=== PATIENT | female | born 1995 | race Caucasian/White ===

== ENCOUNTER → 2016-08-10 | Outpatient (CLI) | payer OTHER ==
[~2016-08-10] MED LIST: BCPILLS PO; CEPH500C PO; CETI10TA84 PO
== END | disposition home or self-care (01) ==
LOC: C.LABBC 14:05
PROVIDERS: ATTEND Family Medicine
DX: J02.9 Acute pharyngitis, unspecified (principal)

== ENCOUNTER 2016-09-04 21:22 | Emergency (ER) | payer OTHER ==
[~2016-09-04] VITALS: Ht 170.2 cm; Wt 65.2 kg
[2016-09-04 21:24] VITALS: TEMP 37.4; Ht 170.2 cm; Wt 65.2 kg
[2016-09-04 22:09] LABS: URINE APPEARANCE CLOUDY (CLEAR); URINE BILIRUBIN NEG (NEG); URINE COLOR DK YELLOW; URINE EPITHELIAL CELL AUTO >30 /lpf (0-5); URINE NITRITE NEG (NEG); URINE SPECIFIC GRAVITY 1.035 (1.000-1.030); UROBILINOGEN NEG (NEG); ZZUR CULT IF INDIC CLEAN CATCH YES
[2016-09-04 22:19] LABS: MANUAL MICROSCOPIC REQUIRED? NO; REVIEW REQ? NO
[2016-09-04] MEDS ORDERED: CEPHALEXIN 500MG HOME PACK 1 EA BTL PO ONE (22:45)
[2016-09-04] MEDS ORDERED: CEPH500C PO (22:50)
[2016-09-04] MEDS ORDERED: CETI10TA84 PO (22:52)
[2016-09-04] MEDS ORDERED: BCPILLS PO (22:52)
[2016-09-04 23:06] VITALS: BP 110/65; PULSE 78; O2SAT 100
--- NOTE | 2016-09-05 01:33 | EMERGENCY ROOM VISIT NOTE ---
History Report prepared by Mary: Dmitry Mejias Under the Supervision of: Dr. Rian Abbott M.D. First contact with patient: 22:27 Chief Complaint: URINARY SYMPTOMS Stated Complaint: UTI,FEELS IT IS SPREADING Nursing Triage Summary: pt with UTI symptoms since . taking cranberry pills. and used monistat. pt also reports she has several bumps on her vaginal area and on her rectum that she thinks may be ingrown hairs from shaving but is unsure. History of Present Illness The patient is a 21 year old female who presents to the Emergency Room with complaints of persistent burning with urination for the past three days. The patient also complains of bumps in the genital area that she believes are ingrown hairs from shaving. She states she noticed the bumps are now spreading to her anal region and so became concerned. She states they're not really painful. She also states that she does shave her genital as well as her anal region. The patient's urinary burning is consistent with past UTIs. The patient has been taking Cranberry pills, which are not helping. She has also taken Monistat for a possible yeast infection. The patient denies fevers, vomiting, diarrhea, or abnormal vaginal bleeding / discharge. She is currently just starting her menses. She denies any history of sexually transmitted diseases. The patient has been sexually active with a single partner for several years. She uses control and barrier protection every time. She was checked for sexually transmitted infections several months ago. She does state that she has lesions on her labia but they are chronic and not painful. Source of History: patient Onset: three days ago Position: other (urinary) Quality: burning Timing: other (persistent) Associated Symptoms: No diarrhea, No fevers, No vomiting Review of Systems See HPI for pertinent positives & negatives. A total of 10 systems reviewed and were otherwise negative. Past Medical & Surgical Medical Problems: (1) History of UTI Family History No pertinent family history Social History Smoking Status: Never Smoker Occupation Status: [employer] student Current/Historical Medications Scheduled Control Pills ( Control Pills), 1 TAB PO DAILY Cephalexin Monohydrate (Keflex), 500 MG PO TID Cetirizine (Zyrtec), 10 MG PO DAILY Allergies Coded Allergies: Acetaminophen (Verified Allergy, Intermediate, facial pain, 09/04/16) Ibuprofen (Verified Allergy, Intermediate, facial swelling, 09/04/16) Prednisone (Verified Allergy, Intermediate, tongue swelling and itching., 09/04/16) Physical Exam Vital Signs Date Time Temp Pulse Resp B/P Pulse Ox O2 Delivery O2 Flow Rate FiO2 09/04/16 23:06 78 18 110/65 100 09/04/16 21:24 37.4 92 20 123/89 99 Room Air Physical Exam Constitutional: Vital signs reviewed. Eyes: Pupils are equal round reactive to light. Conjunctiva are noninjected. ENT: Pharynx is clear without erythema or exudate. Mucous membranes are moist. Neck supple without meningeal signs. Respiratory: Clear to auscultation bilaterally. Breath sounds are equal bilaterally. Cardiovascular: Regular rate and rhythm. No rubs or gallops. GI: Soft, nondistended and nontender. Bowel sounds are present. : The patient has erythematous nodular lesions over the pubic hair as well as the anal region. There are no vesicles. The labia demonstrates some tiny erosions without tenderness. Cervix is closed. Small amount of blood in the vaginal vault. Musculoskeletal: No peripheral edema. No CVA tenderness. Integumentary: No cyanosis. Neurological: The patient is awake and alert. No focal deficits. Psychiatric: Normal affect. Medical Decision & Procedures Laboratory Results Test 09/04/16 21:45 09/04/16 22:40 Urine Color DK YELLOW Urine Appearance CLOUDY (CLEAR) Urine pH 5.0 (4.5-7.5) Urine Specific [place] 1.035 (1.000-1.030) Urine Protein TRACE (NEG) Urine Glucose (UA) NEG (NEG) Urine Ketones NEG (NEG) Urine Occult Blood 3+ (NEG) Urine Nitrite NEG (NEG) Urine Bilirubin NEG (NEG) Urine Urobilinogen NEG (NEG) Urine Leukocyte Esterase TRACE (NEG) Urine WBC (Auto) 10-30 /hpf (0-5) Urine RBC (Auto) 5-10 /hpf (0-4) Urine Hyaline Casts (Auto) 10-30 /lpf (0-5) Urine Epithelial Cells (Auto) >30 /lpf (0-5) Urine Bacteria (Auto) NEG (NEG) Urine Test NEG (NEG) Date/Time Source Procedure Growth Status 09/04/16 22:40 Vaginal Swab Trichomonas Preparation - Final Complete Laboratory results as reviewed by me. Medications Administered Medications (Trade) Dose Ordered Sig/Rashid Route Start Time Stop Time Status Last Admin Dose Admin Cephalexin Monohydrate (Keflex 500MG Home Pack) 1 homepack NOW ONCE PO 09/04/16 22:45 09/04/16 22:46 DC 09/04/16 23:03 1 HOMEPACK ED Course 2230: The patient was evaluated in room B8. A complete history and physical exam was performed. 2245: Keflex 500 mg PO home pack. 1042: I discussed ally's findings with her. She verbalized agreement of the treatment plan. She was discharged home. Medical Decision This is a 21-year-old female who presents with genital lesions and urinary symptoms. Differential diagnosis includes STI, genital herpes, HPV, folliculitis, UTI. I did perform a limited focused review of portions of the patient's old chart on the electronic medical record. The patient has had no recent pertinent visits to this hospital. I did evaluate the patient as noted above. On examination the patient has lesions over her pubic hair and anal region. She does state that she shaves both areas and the lesions do seem to appear consistent with folliculitis. She does, however, have what look like erosive lesions over the labia. She states that these lesions have been present for some time and are not new. She has no tenderness over the genital lesions and no vesicles. I did obtain testing for HSV, Trichomonas and GC and chlamydia. She was advised to follow up closely with her apparel embroidery digitizer for further evaluation. I did order and personally review the patient's urinalysis as described above. I did treat the patient with Keflex. She was discharged with a prescription for Keflex. Impression Primary Impression: UTI (urinary tract infection) Additional Impression: Genital lesion, female Scribe Attestation The scribe's documentation has been prepared under my direct and personally reviewed by me in its entirety. I confirm that the note above accurately reflects all work, treatment, procedures, and medical decision making performed by me. Departure Information Dispostion Home / Self-Care Prescriptions Cephalexin Monohydrate (Keflex) 500 Mg Cap 500 MG PO TID, #28 CAP Prov: Rian Abbott M.D. 09/04/16 Referrals No Doctor, Assigned (PCP) Forms HOME CARE DOCUMENTATION FORM, IMPORTANT VISIT INFORMATION Patient Instructions My [facility], UTI Additional Instructions You have been examined and treated today on an emergency basis only. This is not a substitute for, or an effort to provide, complete comprehensive medical care. It is impossible to recognize and treat all injuries or illnesses in a single emergency department visit. It is therefore important that you follow up closely with [facility]. Call as soon as possible for an appointment. Return for worsening symptoms or if you develop fever, vomiting, abdominal pain or any other concerning symptoms. You have been tested for herpes, gonorrhea and chlamydia. Results will not be back for approximately a week. Avoid any sexual intercourse while you have the rash. Problem Qualifiers
[2016-09-06 22:25] LABS: CHLAMYDIA TRACH RNA*** NOT DETECTED (NOT DETECTED); GC (NEIS GONORRHOEAE)RNA** NOT DETECTED (NOT DETECTED)
[2016-09-07 11:03] LABS: HERPES SIMPLEX CULT SOURCE GENITAL-LABIA; HERPES SIMPLEX VIRUS CULT ISOLATED (NOT ISOLATED)
[2016-09-07 11:43] LABS: HSVTYPE1REFLEX ONLY!DON'T ORDR ISOLATED (NOT ISOLATED); HSVTYPE2REFLEX ONLY!DON'T ORDR NOT ISOLATED (NOT ISOLATED)
== END 2016-09-04 23:07 | disposition home or self-care (01) ==
LOC: C.EDB 21:23
DX: N39.0 Urinary tract infection, site not specified (principal); N89.8 Other specified noninflammatory disorders of vagina; B95.1 Streptococcus, group B, as the cause of diseases classified elsewhere